=== PATIENT | male | born 1965 | race Caucasian/White ===

== ENCOUNTER 2017-05-23 16:50 | Emergency (ER) | payer OTHER ==
[~2017-05-23] VITALS: Ht 162.6 cm; Wt 90.7 kg
[2017-05-23] MEDS ORDERED: GADOBENATE DIMEGLUMINE 1 ML IV ONE (19:37)
--- NOTE | 2017-05-23 20:07 | Diagnostic Imaging Report ---
EXAMINATION: Head CT without contrast. HISTORY:Left facial numbness. COMPARISON:None. TECHNIQUE: Multidetector axial images were obtained from the foramen magnum to the vertex without contrast. The images were reconstructed using brain and bone algorithms. Thin section brain images were reformatted into coronal and sagittal planes. Intravenous contrast: None IMAGE QUALITY: Acceptable. FINDINGS: Skull/scalp: No abnormality. Parenchyma: Nonspecific bilateral frontoparietal few, scattered patchy white matter hypodensity are likely related to small vessel ischemic changes. Bilateral symmetric subcortical and deep white matter hypodensity in superior frontal gyri (image 24, series 2). No acute hemorrhage, mass or acute major vascular territorial infarct. Arteries: No density suggestive of thrombosis. Dural sinuses: No abnormal density suggestive of thrombosis. Ventricles: No hydrocephalus or displacement. Extra-axial spaces: No abnormal density. Brain volume: Normal for age. Craniocervical junction: No mass, Chiari malformation, or basilar invagination. Sella: No mass. Paranasal/mastoid sinuses: Imaged portions unremarkable. Incidental finding: Incidental nonspecific fatty atrophy of left paraspinal neck muscle at level C1 (image 2, series 2). IMPRESSION: 1. No acute intracranial abnormality, particularly no acute hemorrhage, mass or acute major vascular territorial infarct. 2. Nonspecific bilateral superior frontal symmetric subcortical/deep white matter hypodensity, differential possibility includes gliosis related to prior trauma, small vessel ischemic changes, vasculitis or demyelinating disease in appropriate clinical setting. 3. Mild supratentorial white matter microvascular ischemic changes. A preliminary report was given by Neuroradiology fellow Dr. Spencer at 6:30 PM on 05/23/2017 and findings were informed to Nurse practitioner Mr. Daquan Ngo by phone. Signed by: Dr. Brooklyn Perez M.D. on 05/23/2017 8:03 PM
--- NOTE | 2017-05-23 21:41 | Diagnostic Imaging Report ---
History: Left facial numbness for 4 days. Comparison studies: CT brain from earlier the same day. Technique: Pre-contrast: Sagittal T2; axial T1, GRE, T2, DWI, T2 FLAIR Post-contrast: axial and coronal T1. Intravenous contrast: 20 cc of MultiHance Findings: Scalp: No abnormality. No abnormal signal. Bone marrow: Normal in signal intensity. Brain sulci: Appropriate for age. Ventricles: Normal in size . No hydrocephalus. Parenchyma: Nonspecific few, scattered T2/FLAIR punctate, hyperintense foci are likely related to small vessel ischemic changes. Bilateral superior frontal symmetric subcortical/deep white matter T2/FLAIR patchy hyperintensity without associated enhancement or mass effect possibly represents gliosis related to prior trauma. No masses, hemorrhage, acute vascular insult. No abnormal enhancement. Suprasellar region: No abnormalities. Craniocervical junction: Patent foramen magnum. No Chiari one malformation. Vessels: Normal flow-voids in the arteries and sinuses. Incidental findings: T1/T2 hyperintensity and atrophic changes in left posterior paraspinal muscles at level C1 in the left perivertebral neck space (image 2, series 4) may be related to prior trauma or denervation atrophy in appropriate clinical setting. IMPRESSION: 1. No acute intracranial abnormality. 2. Bilateral superior frontal symmetric subcortical/deep white matter T2/FLAIR hyperintensity possibly represents gliosis related to prior trauma. 3. Mild supratentorial white matter microvascular ischemic changes. 4. Incidental T1/T2 hyperintensity and atrophy in left posterior paraspinal muscles at level C1 may be related to prior trauma or denervation atrophy in appropriate clinical setting. Signed by: Dr. Brooklyn Perez M.D. on 05/23/2017 9:38 PM
[2017-05-23 22:13] VITALS: BP 143/84
== END 2017-05-23 22:17 | disposition home or self-care (01) ==
LOC: ER 16:50
DX: G51.0 Bell's palsy (principal)
CPT/HCPCS: 70450; 70553; 99283